=== PATIENT | male | born 1970 | race African-American/Black ===

== ENCOUNTER 2017-09-26 12:38 | Inpatient (IN) | payer MEDICAID, OTHER ==
[~2017-09-26] VITALS: Ht 167.6 cm; Wt 73.5 kg
[2017-09-26 13:06] LABS: BASOPHILS % (AUTO) 0.7 % (0.0-2.0); EOSINOPHILS % (AUTO) 4.5 % (1.0-6.0); HEMATOCRIT 46.2 % (41-53); HEMOGLOBIN 16.2 g/dL (13.5-17.5); LYMPHOCYTES # (AUTO) 1.4 K/uL (1.0-4.8); LYMPHOCYTES % (AUTO) 16.9 % (22.0-44.0); MEAN CORPUSCULAR HEMOGLOBIN 31.7 pg (26.0-34.0); MEAN CORPUSCULAR HGB CONC 35.1 G/dL (31.0-37.0); MEAN CORPUSCULAR VOLUME 90 fL (80-100); MONOCYTES # (AUTO) 0.8 K/uL (0.1-1.0); MONOCYTES % (AUTO) 9.5 % (2.0-9.0); NEUTROPHILS # (AUTO) 5.5 K/uL (1.8-7.7); NEUTROPHILS % (AUTO) 68.4 % (40.0-70.0); PLATELET COUNT (AUTO) 182 K/uL (150-450); RED BLOOD CELL COUNT(AUTO) 5.12 MIL/uL (4.50-5.90); RED CELL DISTRIBUTION WIDTH 14.4 % (11.5-14.5)
[2017-09-26 13:14] LABS: ANION GAP 11 mmol/L (8-16); CALCIUM, TOTAL 9.1 mg/dL (8.8-10.5); CARBON DIOXIDE 27 mmol/L (22-29); CHLORIDE 101 mmol/L (98-107); GLOMERULAR FILTR. RATE CALC > 60 mL/min (>60); GLUCOSE,RANDOM 93 mg/dL (70-110); POTASSIUM 3.4 mmol/L (3.5-5.1); SODIUM SERUM 139 mmol/L (136-145); UREA NITROGEN, BLOOD 22 mg/dL (7-18)
[2017-09-26 13:20] LABS: ALANINE AMINOTRANSFERASE 87 U/L (12-78); ALBUMIN 4.1 g/dL (3.4-5.0); ALKALINE PHOSPHATASE 120 U/L (46-116); ASPARTATE AMINOTRANSFERASE 34 U/L (15-37); BILIRUBIN,TOTAL 0.8 mg/dL (0.1-1.0); TOTAL PROTEIN, SERUM 7.8 g/dL (6.4-8.2)
[2017-09-26 14:56] LABS: AMPHET/METH SCREEN,URINE NEGATIVE (NEGATIVE); BARBITURATE SCREEN, URINE NEGATIVE (NEGATIVE); BENZODIAZEPINES SCREEN,URINE NEGATIVE (NEGATIVE); CANNABINOID SCREEN,URINE NEGATIVE (NEGATIVE); COCAINE SCREEN,URINE NEGATIVE (NEGATIVE); METHADONE SCREEN, URINE NEGATIVE (NEGATIVE); OPIATE SCREEN,URINE NEGATIVE (NEGATIVE)
[2017-09-26 14:59] LABS: PHENCYCLIDINE SCREEN,URINE NEGATIVE (NEGATIVE)
[2017-09-26] MEDS ORDERED: HALOPERIDOL 5 MG TABLET PO ONE (16:00)
[2017-09-26] MEDS ORDERED: HALOPERIDOL 5 MG TABLET PO PRN (17:15)
[2017-09-26] MEDS ORDERED: ZOLPIDEM TARTRATE 10 MG TABLET PO PRN (17:15)
[2017-09-26 18:50] VITALS: BP 133/76
[2017-09-26] MEDS ORDERED: POTASSIUM CHLORIDE 20 MEQ ER TABLET PO ONE (20:45)
[2017-09-26] MEDS ORDERED: MAGNESIUM HYDROXIDE SUSPENSION 30 ML UDCUP PO PRN (22:30)
[2017-09-26] MEDS ORDERED: ALBUTEROL SULFATE HFA 90 MCG/PUFF 8 GM INHALER IH PRN (22:30)
[2017-09-26] MEDS ORDERED: DOCUSATE SODIUM 100 MG CAPSULE PO PRN (22:30)
[2017-09-26] MEDS ORDERED: MAG HYDROX/AL HYDROX/SIMETH ES 30 ML SUSPENSION UDCUP PO PRN (22:30)
[2017-09-26] MEDS ORDERED: PETROLATUM,WHITE 71 GM JELLY TP PRN (22:30)
[2017-09-26] MEDS ORDERED: ACETAMINOPHEN 325 MG TABLET PO PRN (22:30)
[2017-09-26] MEDS ORDERED: IBUPROFEN 400 MG TABLET PO PRN (22:30)
[2017-09-26] MEDS ORDERED: ONDANSETRON HCL 4 MG TABLET PO PRN (22:30)
[2017-09-27] VITALS: BP 134/63
[2017-09-27 08:20] VITALS: BP 117/73
[2017-09-27 08:36] LABS: CHOL/HDL RATIO 2.7 (4.2-7.3); POTASSIUM 3.8 mmol/L (3.5-5.1); THYROID STIMULATING HORMONE 0.35 uIU/mL (0.36-3.74)
[2017-09-27] MEDS: NICOTINE 14 MG/24 HOUR PATCH TD SCH (08:54)
[2017-09-27 16:07] VITALS: BP 118/73
[2017-09-27] MEDS: LORazepam 2 MG TABLET PO PRN (17:00)
[2017-09-28 05:51] VITALS: BP 131/82
[2017-09-28 08:09] VITALS: BP 132/80
[2017-09-28] MEDS: FLUoxetine HCL 20 MG CAPSULE PO SCH (09:09)
[2017-09-28] MEDS: ARIPiprazole 10 MG TABLET PO SCH (09:09)
[2017-09-28] MEDS: NICOTINE 14 MG/24 HOUR PATCH TD SCH (09:11)
[2017-09-28 16:00] VITALS: BP 130/78
[2017-09-28] MEDS: LORazepam 2 MG TABLET PO PRN (17:15)
[2017-09-29 06:12] VITALS: BP 126/65
[2017-09-29 08:21] VITALS: BP 138/68
[2017-09-29] MEDS: ARIPiprazole 10 MG TABLET PO SCH (08:40)
[2017-09-29] MEDS: FLUoxetine HCL 20 MG CAPSULE PO SCH (08:40)
[2017-09-29] MEDS: NICOTINE 14 MG/24 HOUR PATCH TD SCH (08:41)
[2017-09-29 16:12] VITALS: BP 136/94
[2017-09-30 00:34] VITALS: BP 139/88
[2017-09-30 08:29] VITALS: BP 138/79
[2017-09-30] MEDS: ARIPiprazole 10 MG TABLET PO SCH (08:32)
[2017-09-30] MEDS: FLUoxetine HCL 20 MG CAPSULE PO SCH (08:32)
[2017-09-30] MEDS: NICOTINE 14 MG/24 HOUR PATCH TD SCH (08:33)
[2017-09-30 16:00] VITALS: BP 142/90
[2017-10-01 05:43] VITALS: BP 149/86
[2017-10-01 08:32] VITALS: BP 141/87
[2017-10-01] MEDS: FLUoxetine HCL 20 MG CAPSULE PO SCH (08:35)
[2017-10-01] MEDS: ARIPiprazole 10 MG TABLET PO SCH (08:35)
[2017-10-01] MEDS: NICOTINE 14 MG/24 HOUR PATCH TD SCH (08:39)
[2017-10-01 16:08] VITALS: BP 147/84
[2017-10-02 05:34] VITALS: BP 138/82
[2017-10-02 08:41] VITALS: BP 135/88
[2017-10-02] MEDS: FLUoxetine HCL 20 MG CAPSULE PO SCH (08:43)
[2017-10-02] MEDS: ARIPiprazole 10 MG TABLET PO SCH (08:43)
[2017-10-02 16:02] VITALS: BP 138/90
[2017-10-02 21:16] VITALS: BP 135/88
[2017-10-03 06:55] VITALS: BP 138/89
[2017-10-03 08:20] VITALS: BP 138/84
[2017-10-03] MEDS: FLUoxetine HCL 20 MG CAPSULE PO SCH (08:41)
[2017-10-03] MEDS: ARIPiprazole 10 MG TABLET PO SCH (08:41)
[2017-10-03] MEDS: LORazepam 2 MG TABLET PO PRN (15:58)
[2017-10-03 16:08] VITALS: BP_SYST 13; BP_SYST 138; BP_DIAS 86; BP_DIAS 98
[2017-10-03] MEDS: AmLODIPine BESYLATE 5 MG TABLET PO SCH (18:11)
[2017-10-03 20:46] VITALS: BP 152/102
[2017-10-03] MEDS: CloNIDine HCL 0.1 MG TABLET PO PRN (20:46)
[2017-10-03 21:40] VITALS: BP 145/87
[2017-10-04 05:22] VITALS: BP 142/90
[2017-10-04 08:13] VITALS: BP 157/95
[2017-10-04] MEDS: FLUoxetine HCL 20 MG CAPSULE PO SCH (08:29)
[2017-10-04] MEDS: AmLODIPine BESYLATE 5 MG TABLET PO SCH (08:29)
[2017-10-04] MEDS: ARIPiprazole 10 MG TABLET PO SCH (08:29)
[2017-10-04 10:05] VITALS: BP 132/102
[2017-10-04] MEDS: LORazepam 2 MG TABLET PO PRN (12:00)
[2017-10-04 13:32] VITALS: BP 110/54
[2017-10-04 16:04] VITALS: BP 131/83
[2017-10-05 08:40] VITALS: BP 140/90
[2017-10-05] MEDS: ARIPiprazole 10 MG TABLET PO SCH (08:41)
[2017-10-05] MEDS: FLUoxetine HCL 20 MG CAPSULE PO SCH (08:41)
[2017-10-05] MEDS: AmLODIPine BESYLATE 5 MG TABLET PO SCH (08:41)
[2017-10-05 13:49] VITALS: BP 132/69
[2017-10-05 16:05] VITALS: BP 142/81
[2017-10-06] MEDS: ARIPiprazole 10 MG TABLET PO SCH (08:39)
[2017-10-06] MEDS: AmLODIPine BESYLATE 5 MG TABLET PO SCH (08:39)
[2017-10-06] MEDS: FLUoxetine HCL 20 MG CAPSULE PO SCH (08:39)
[2017-10-06 08:44] VITALS: BP 133/89
[2017-10-06 16:20] VITALS: BP 146/95
[2017-10-06 16:25] VITALS: BP 151/93
[2017-10-06] MEDS: CloNIDine HCL 0.1 MG TABLET PO PRN (16:25)
[2017-10-06 19:01] VITALS: BP 121/73
[2017-10-07 00:54] VITALS: BP 127/79
[2017-10-07 08:06] VITALS: BP 134/85
[2017-10-07] MEDS: ARIPiprazole 10 MG TABLET PO SCH (08:47)
[2017-10-07] MEDS: FLUoxetine HCL 20 MG CAPSULE PO SCH (08:47)
[2017-10-07] MEDS: AmLODIPine BESYLATE 5 MG TABLET PO SCH (08:47)
[2017-10-07 16:47] VITALS: BP 157/86
[2017-10-08 00:45] VITALS: BP 137/78
[2017-10-08] MEDS: LORazepam 2 MG TABLET PO PRN (05:34)
[2017-10-08 07:40] VITALS: BP 148/87
[2017-10-08 08:00] VITALS: BP 149/93
[2017-10-08] MEDS: ARIPiprazole 10 MG TABLET PO SCH (08:30)
[2017-10-08] MEDS: FLUoxetine HCL 20 MG CAPSULE PO SCH (08:30)
[2017-10-08] MEDS: AmLODIPine BESYLATE 5 MG TABLET PO SCH (08:30)
[2017-10-08] MEDS ORDERED: ARIP10TA8 PO (08:51)
[2017-10-08] MEDS ORDERED: FLUO-191 PO (08:51)
[2017-10-08] MEDS ORDERED: AMLO-511 PO (08:52)
[2017-10-08 09:43] VITALS: BP 149/93
== END 2017-10-08 13:35 | disposition home or self-care (01) | DRG 751 ==
LOC: EMS 12:41 → B2S 17:55
PROVIDERS: ADMIT Psychiatry & Neurology Psychiatry; ATTEND Psychiatry & Neurology Psychiatry
DX: F29 Unspecified psychosis not due to a substance or known physiological condition (principal); I10 Essential (primary) hypertension; E87.6 Hypokalemia; F41.9 Anxiety disorder, unspecified; E03.9 Hypothyroidism, unspecified; F19.10 Other psychoactive substance abuse, uncomplicated
CPT/HCPCS: 70450; 80074; 84132; 84439; 84443; 99285; G0480